=== PATIENT | female | born 1955 | race Asian ===

== ENCOUNTER 2019-12-10 21:32 | Emergency (ER) | payer OTHER ==
[~2019-12-10] VITALS: Ht 154.9 cm; Wt 53.5 kg
[2019-12-10 21:48] VITALS: Ht 154.9 cm; Wt 53.5 kg
[2019-12-10 22:42] VITALS: BP 155/71
== END 2019-12-10 22:42 | disposition home or self-care (01) ==
LOC: ED 21:32
DX: S71.152A Open bite, left thigh, initial encounter (principal); W54.0XXA Bitten by dog, initial encounter; Y93.89 Activity, other specified; Y92.89 Other specified places as the place of occurrence of the external cause; Y99.8 Other external cause status
CPT/HCPCS: 90715